=== PATIENT | male | born 1980 | race Caucasian/White ===

== ENCOUNTER 2019-07-16 21:42 | Emergency (ER) | payer MEDICAID, OTHER ==
[~2019-07-16] VITALS: Ht 170.2 cm; Wt 79.4 kg
[~2019-07-16 21:42] MED LIST: ALPR1TAB2 PO; FAMO-96 PO; ONDA4TAB14 PO
[2019-07-16 21:49] VITALS: Ht 170.2 cm; Wt 79.4 kg
[2019-07-17] MEDS ORDERED: LORAZEPAM 0.5 MG TAB PO ONE (00:30)
[2019-07-17 00:53] VITALS: BP 136/93; PULSE 96; RESP 20
== END 2019-07-17 00:56 | disposition home or self-care (01) ==
LOC: E/R 21:42
DX: R07.9 Chest pain, unspecified (principal); R06.4 Hyperventilation; R20.2 Paresthesia of skin; R00.0 Tachycardia, unspecified
CPT/HCPCS: 36415; 71045; 80053; 80307; 84484; 85025; 93005